=== PATIENT | female | born 1985 | race Caucasian/White ===

== ENCOUNTER 2017-11-20 18:30 | Emergency (ER) | payer OTHER ==
[2017-11-20 20:45] VITALS: BP 111/61
[2017-11-20] MEDS ORDERED: Amoxicillin/Clavulanate TAB* 875 MG PO ONE (21:52)
--- NOTE | 2017-11-20 21:52 | ED ---
Throat Pain/Nasal Congestion - HPI Summary HPI Summary: 32 yr old female with a little over a day of runny nose, sinus pressure, coughing and now right ear pain. Denies fever and chills. She states her ear pain is moderate. No other complaints. - History of Current Complaint Chief Complaint: UCRespiratory Time Seen by Provider: 11/20/17 21:38 - Allergies/Home Medications Allergies/Adverse Reactions: Allergies Allergy/AdvReac Type Severity Reaction Status Date / Time No Known Allergies Allergy Verified 11/20/17 20:45 Home Medications: Home Medications Insulin Pen Inj 1 dose SUBCUT AC 11/20/17 [History Confirmed 11/20/17] PMH/Surg Hx/FS Hx/Imm Hx Endocrine/Hematology History: Reports: Hx Diabetes - insulin dependent Denies: Hx Thyroid Disease Cardiovascular History: Reports: Hx Hypertension Respiratory History: Denies: Hx Asthma, Hx Chronic Obstructive Pulmonary Disease (COPD) GI History: Denies: Hx Ulcer - Surgical History Surgery Procedure, Year, and Place: Ear tubes as a child. , 05[place]14/07, [place]. , 08/13/11, [place] Infectious Disease History: No Infectious Disease History: Denies: Hx Clostridium Difficile, Hx Hepatitis, Hx Human Immunodeficiency Virus (HIV), Hx of Known/Suspected MRSA, Hx Shingles, Hx Tuberculosis, Hx Known/ Suspected VRE, Hx Known/Suspected VRSA, History Other Infectious Disease, Traveled Outside the in Last 30 Days - Family History Known Family History: Positive: Hypertension, Diabetes - Social History Alcohol Use: None Substance Use Type: Reports: None Smoking Status (MU): Never Smoked Tobacco Review of Systems Positive: Sore Throat, Ear Ache, Nasal Discharge Positive: Cough All Other Systems Reviewed And Are Negative: Yes Physical Exam Triage Information Reviewed: Yes Vital Signs On Initial Exam: Initial Vitals Temp Pulse Resp BP Pulse Ox 97.7 F 93 20 111/61 100 11/20/17 20:39 11/20/17 20:39 11/20/17 20:39 11/20/17 20:39 11/20/17 20:39 Vital Signs Reviewed: Yes Appearance: Positive: Well-Appearing, No Pain Distress Skin: Positive: Warm, Skin Color Reflects Adequate Perfusion Head/Face: Positive: Normal Head/Face Inspection Eyes: Positive: EOMI ENT: Positive: TM dull - right, TM red - right. Negative: Sinus tenderness Neck: Positive: Nontender Respiratory/Lung Sounds: Positive: Clear to Auscultation, Breath Sounds Present Cardiovascular: Positive: RRR. Negative: Murmur Abdomen Description: Positive: Nontender Musculoskeletal: Positive: Strength/ROM Intact Neurological: Positive: Sensory/Motor Intact, Alert, Oriented to Person Place, Time, CN Intact II-III Psychiatric: Positive: Normal - [place] Coma Scale Best Eye Response: 4 - Spontaneous Best Motor Response: 6 - Obeys Commands Best Verbal Response: 5 - Oriented Diagnostics - Vital Signs Vital Signs Temp Pulse Resp BP Pulse Ox 11/20/17 20:39 97.7 F 93 20 111/61 100 - Laboratory Lab Results: Lab Results 11/20/17 Range/Units 21:25 Group A Strep Rapid Negative (Negative) Lab Statement: Any lab studies that have been ordered have been reviewed, and results considered in the medical decision making process. EENT Course/Dx - Course Course Of Treatment: 32 yr old with URI, sinusitis and also right OM. Rx with augmentin - Diagnoses Provider Diagnoses: Sinusitis, Otitis media Discharge - Discharge Plan Condition: Good Disposition: HOME Prescriptions: Amoxicillin/Clavulanate TAB* [Augmentin TAB 875*] 875 mg PO BID #20 tab Patient Education Materials: Sinusitis (ED), Otitis Media (ED), Upper Respiratory Infection (ED) Referrals: Hyacinth San MD [Primary Care Provider] -
== END 2017-11-20 21:52 | disposition home or self-care (01) ==
LOC: UCCORT 18:30
DX: J32.9 Chronic sinusitis, unspecified (principal); H66.91 Otitis media, unspecified, right ear; E11.9 Type 2 diabetes mellitus without complications; Z79.4 Long term (current) use of insulin; I10 Essential (primary) hypertension
CPT/HCPCS: 87651; 99212; A9270-GY; G0463

== ENCOUNTER 2018-03-18 20:16 | Emergency (ER) | payer OTHER ==
[2018-03-18 21:50] VITALS: BP 118/74
--- NOTE | 2018-03-18 22:20 | UC ---
Throat Pain/Nasal Cuate HPI - HPI Summary HPI Summary: Patient to urgent care this evening with chief complaint sore throat. Patient is an insulin-dependent diabetic who has not been checking her blood sugars she denies urinary frequency urgency any dysuria she denies polydipsia polyphagia polyuria. She does not smoke ketotic and she states she feels well no nausea vomiting - History of Current Complaint Chief Complaint: UCGeneralIllness Stated Complaint: COUGH,SORE THROAT Time Seen by Provider: 03/18/18 22:19 Hx Obtained From: Patient Hx Last Menstrual Period: [id number] ?: No Onset/Duration: Sudden Onset Severity: Moderate Pain Intensity: 8 Pain Scale Used: 0-10 Numeric Cough: None - Allergies/Home Medications Allergies/Adverse Reactions: Allergies Allergy/AdvReac Type Severity Reaction Status Date / Time No Known Allergies Allergy Verified 11/20/17 20:45 Home Medications: Home Medications Ibuprofen 1,000 mg PO Q8H 03/18/18 [History Confirmed 03/18/18] PMH/Surg Hx/FS Hx/Imm Hx Previously Healthy: No Endocrine History: Diabetes, Dyslipidemia Cardiovascular History: Hypertension - Surgical History Surgical History: Yes Surgery Procedure, Year, and Place: Ear tubes as a child. , 05/14/07, [place]. , 08[place]13/11, [place] - Family History Known Family History: Positive: Hypertension, Diabetes - Social History Occupation: Employed Part-time Lives: With Family Alcohol Use: None Substance Use Type: None Smoking Status (MU): Never Smoked Tobacco Review of Systems Constitutional: Negative Skin: Negative Eyes: Negative ENT: Sore Throat, Nasal Discharge Respiratory: Negative Cardiovascular: Negative Gastrointestinal: Negative Genitourinary: Negative Motor: Negative Neurovascular: Negative Musculoskeletal: Negative Neurological: Negative Psychological: Negative Is Patient Immunocompromised?: No All Other Systems Reviewed And Are Negative: Yes Physical Exam Triage Information Reviewed: Yes Appearance: Well-Appearing, No Pain Distress, Well-Nourished Vital Signs: Initial Vital Signs Temp 98 F 03/18/18 21:42 Pulse 98 03/18/18 21:42 Resp 18 03/18/18 21:42 BP 118/74 03/18/18 21:42 Pulse Ox 97 03/18/18 21:42 Vital Signs Reviewed: Yes Eye Exam: Normal Eyes: Positive: Conjunctiva Clear ENT Exam: Normal ENT: Positive: Normal ENT inspection, Hearing grossly normal, Pharyngeal erythema, TMs normal, Uvula midline. Negative: Nasal congestion, Tonsillar swelling, Tonsillar exudate, Trismus, Muffled voice, Hoarse voice, Sinus tenderness Dental Exam: Normal Neck exam: Normal Neck: Positive: Supple, Nontender, No Lymphadenopathy Respiratory Exam: Normal Respiratory: Positive: Chest non-tender, Lungs clear, Normal breath sounds, No respiratory distress, No accessory muscle use Cardiovascular Exam: Normal Cardiovascular: Positive: RRR, No Murmur, Pulses Normal, Brisk Capillary Refill Musculoskeletal Exam: Normal Musculoskeletal: Positive: Strength Intact, ROM Intact Neurological Exam: Normal Neurological: Positive: Alert, Muscle Tone Normal Psychological Exam: Normal Skin Exam: Normal Diagnostics - Laboratory Diagnostic Studies Completed/Ordered: Unable to assess patient's blood sugar to elevated triglycerides and her blood attempted 2 patient advised to follow up with PCP in the morning Throat Pain/Nasal Course/Dx - Course Assessment/Plan: Past increase fluids Tylenol ibuprofen and follow up with Dr. chandler thing follow morning. You can get a free glucose monitor at the free clinic please give him a call if he needs assistance - Differential Dx/Diagnosis Provider Diagnoses: Insulin-dependent diabetic, viral illness pharyngitis Discharge - Sign-Out/Discharge Documenting (check all that apply): Discharge - Discharge Plan Condition: Stable Disposition: HOME Patient Education Materials: Decongestant/Expectorant (By mouth), Upper Respiratory Infection (ED), Viral Syndrome (ED) Referrals: [facility] [Outside] - 1 Week Hyacinth San MD [Primary Care Provider] - 2 Days Additional Instructions: Free clinic in [place] ([facility]) we can help you get a new diabetes monitor please give us a call up with a referral for the facility in your discharge instructions. Your blood sugar twice read what is called erroneous kinetics which means you have an elevated triglycerides or lipids your blood that something that should be followed up with your doctor in the next few days - Billing Disposition and Condition Condition: STABLE Disposition: HOME
== END 2018-03-18 22:42 | disposition home or self-care (01) ==
LOC: UCCORT 20:16
DX: B34.9 Viral infection, unspecified (principal); J02.9 Acute pharyngitis, unspecified; E11.9 Type 2 diabetes mellitus without complications; I10 Essential (primary) hypertension
CPT/HCPCS: 87651; 99211; G0463